=== PATIENT | male | born 1960 | race Caucasian/White ===

== ENCOUNTER 2019-11-15 12:17 | Emergency (ER) | payer SELFPAY ==
[~2019-11-15] VITALS: Ht 175.3 cm; Wt 70.0 kg
[2019-11-15 13:31] VITALS: BP 146/72
== END 2019-11-15 13:25 | disposition left against medical advice (07) ==
LOC: ER 12:17
DX: Z53.21 Procedure and treatment not carried out due to patient leaving prior to being seen by health care provider (principal)